=== PATIENT | female | born 1970 | race Caucasian/White ===

== ENCOUNTER 2022-06-21 07:50 | Day surgery (SDC) | payer MEDICARE ==
[2022-06-21] MEDS ORDERED: Decadron 4 MG INJ IV ONE (07:51)
[2022-06-21] MEDS ORDERED: LIDOCAINE HCL 1% 50 MG/5 ML VL PF IJ ONE (07:51)
--- NOTE | 2022-06-21 10:07 | XRAY ---
Indication: Bilateral piriformis injection. Intraoperative fluoroscopy provided for 26 seconds. 2 digital spot image submitted for interpretation demonstrates posterior needle tip projecting over the expected left and right piriformis muscles. Small amount of contrast injected for needle tip placement. Correlate with intraoperative findings/report.
--- NOTE | 2022-06-21 11:35 | XRAY ---
26 seconds fluoroscopy time in surgery for bilateral piriformis muscle injections.
== END 2022-06-21 09:40 | disposition home or self-care (01) ==
LOC: SDC-PAIN 07:50
PROVIDERS: ATTEND Psychiatry & Neurology Pain Medicine
DX: M79.18 Myalgia, other site (principal); E11.9 Type 2 diabetes mellitus without complications; Z79.899 Other long term (current) drug therapy
CPT/HCPCS: 20553; 72170; 77002; 77003; 81025; 82947; J1100; J2001; Q9966

== ENCOUNTER 2022-07-12 08:24 | Day surgery (SDC) | payer MEDICARE ==
[2022-07-12] MEDS ORDERED: BUPIVACAINE 0.5% VIAL IJ ONE (08:25)
[2022-07-12] MEDS ORDERED: Depo-Medrol 40 MG/ML IM ONE (08:25)
[2022-07-12] MEDS ORDERED: LIDOCAINE HCL 1% 50 MG/5 ML VL PF IJ ONE (08:25)
[2022-07-12] MEDS ORDERED: DIPRIVAN 200 MG/20 ML IV ONE (10:16)
--- NOTE | 2022-07-12 11:10 | XRAY ---
Indication: Right SI joint injection. Intraoperative fluoroscopy provided for 17 seconds. 2 digital spot images submitted for interpretation demonstrates posterior needle tip projecting over the right SI joint. Correlate with intraoperative findings/report.
--- NOTE | 2022-07-12 11:58 | XRAY ---
17 seconds of fluoroscopy was used in surgery for a right sacroiliac joint injection.
== END 2022-07-12 10:36 | disposition home or self-care (01) ==
LOC: SDC-PAIN 08:24
PROVIDERS: ATTEND Psychiatry & Neurology Pain Medicine
DX: M46.1 Sacroiliitis, not elsewhere classified (principal); E11.9 Type 2 diabetes mellitus without complications; Z79.899 Other long term (current) drug therapy
CPT/HCPCS: 27096; 72170; 77002; 81025; 82947; G0260; J1030; J2001; J2704

== ENCOUNTER 2022-09-27 07:50 | Day surgery (SDC) | payer MEDICARE ==
[2022-09-27] MEDS ORDERED: Sodium Chloride 0.9(Preservative Free) 10 ML IJ ONE (07:51)
[2022-09-27] MEDS ORDERED: Depo-Medrol 40 MG/ML IM ONE (07:51)
[2022-09-27 08:09] LABS: HCG URINE TEST NEGATIVE (NEGATIVE)
[2022-09-27] MEDS ORDERED: DIPRIVAN 200 MG/20 ML IV ONE ×2 (09:19→09:34)
[2022-09-27] MEDS ORDERED: MORPHINE SULFATE 2 MG INJ ONE (09:41)
--- NOTE | 2022-09-27 10:10 | XRAY ---
Indication: Right L4-S1 transforaminal LAVERN. Intraoperative fluoroscopy was provided for 47 seconds. 3 digital spot image submitted for interpretation demonstrates posterior needle tips projecting over the expected right L4 and L5 nerve roots. Small amount of contrast injected for needle tip placement. Correlate with intraoperative findings/report.
--- NOTE | 2022-09-27 10:12 | XRAY ---
47 seconds of fluoroscopy was used in surgery for a right L4-S1 transforaminal LAVERN.
[2022-09-27] MEDS ORDERED: Lactated Ringers 1,000 ML IV ONE (15:14)
== END 2022-09-27 10:00 | disposition home or self-care (01) ==
LOC: SDC-PAIN 07:50
PROVIDERS: ATTEND Psychiatry & Neurology Pain Medicine
DX: M54.16 Radiculopathy, lumbar region (principal); E11.9 Type 2 diabetes mellitus without complications; Z79.899 Other long term (current) drug therapy
CPT/HCPCS: 64483; 64484; 72100; 77003; 81025; 82947; J1030; J2270; J2704; Q9966

== ENCOUNTER 2022-12-13 08:27 | Day surgery (SDC) | payer MEDICARE ==
[2022-12-13] MEDS ORDERED: Depo-Medrol 40 MG/ML IM ONE (08:28)
[2022-12-13] MEDS ORDERED: XYLOCAINE 1% HCL 20 ML MDV IJ ONE (08:28)
[2022-12-13] MEDS ORDERED: BUPIVACAINE 0.5% VIAL IJ ONE (08:28)
[2022-12-13 09:18] LABS: HCG URINE TEST NEGATIVE (NEGATIVE)
--- NOTE | 2022-12-13 12:52 | XRAY ---
Indication: Bilateral SI joint injection. Intraoperative fluoroscopy provided for 24 seconds. 4 digital spot images submitted for interpretation demonstrates posterior needle tip projecting over the expected left and right SI joint. Correlate with intraoperative findings/report.
--- NOTE | 2022-12-13 13:37 | XRAY ---
24 seconds of fluoroscopy was used in surgery for a bilateral sacroiliac joint injection.
== END 2022-12-13 11:47 | disposition home or self-care (01) ==
LOC: SDC-PAIN 08:27
PROVIDERS: ATTEND Psychiatry & Neurology Pain Medicine
DX: M46.1 Sacroiliitis, not elsewhere classified (principal); E11.9 Type 2 diabetes mellitus without complications; Z79.899 Other long term (current) drug therapy
CPT/HCPCS: 27096; 72202; 77002; 81025; 82947; G0260; J1030